=== PATIENT | male | born 1995 | race Two or more races ===

== ENCOUNTER 2019-01-13 06:11 | Emergency (ER) | payer BC ==
[~2019-01-13] VITALS: Ht 165.1 cm; Wt 79.4 kg
[2019-01-13 06:20] VITALS: BP 124/83
--- NOTE | 2019-01-13 06:20 | NUR ---
ED Nurse Note: Pt arrived ED from home, c/o Flu like symptoms/coughing, sore throat for 2 days. Pt is A/OX 4. Vital signs stable at this time. Waiting for orders.
--- NOTE | 2019-01-13 06:32 | Emergency Room Report ---
History of Present Illness General Chief Complaint: Sore Throat Source: Patient Present Illness HPI Patient presents with complaints of sore throat Reports that yesterday he had felt some low-grade fever and some chills today he has increased discomfort with swallowing Denies any chest pain or shortness of breath He reports that he felt some irritation in the back of the throat and he tried to cough to get it out however while coughing he did have vomiting episode Denies any chest pain after this denies any posterior neck pain or photophobia Denies any focal weakness or recent travel Allergies: Coded Allergies: No Known Allergies (Unverified , 01/13/19) Patient History Past Medical History: see triage record Pertinent Family History: none Reviewed Nursing Documentation: PMH: Agreed; PSxH: Agreed Nursing Documentation-PMH Past Medical History: No Stated History Review of Systems All Other Systems: negative except mentioned in HPI Physical Exam Vital Signs Date Time Temp Pulse Resp B/P (MAP) Pulse Ox O2 Delivery O2 Flow Rate FiO2 01/13/19 06:16 97.9 85 16 123/87 95 Room Air Sp02 EP Interpretation: reviewed, normal General Appearance: well appearing, no apparent distress Head: normocephalic, atraumatic Eyes: bilateral eye PERRL, bilateral eye EOMI ENT: hearing grossly normal, normal voice, TMs + canals normal, uvula midline, pharyngeal erythema Neck: full range of motion, supple, no meningismus, no bony tend Respiratory: lungs clear, normal breath sounds, no rhonchi, no respiratory distress, no retraction, no accessory muscle use Cardiovascular #1: normal peripheral pulses, regular rate, rhythm, no edema, no gallop, no JVD, no murmur Gastrointestinal: normal bowel sounds, non tender, soft, no mass, no organomegaly, non-distended, no guarding, no hernia, no pulsatile mass, no rebound Genitourinary: no CVA tenderness Musculoskeletal: normal inspection Neurologic: oriented x3, responsive, 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 as tested, motor strength/ tone normal, sensory intact Psychiatric: mood/affect normal Skin: normal color, no rash, warm/dry, palpation normal Lymphatic: normal inspection, no adenopathy Medical Decision Making Diagnostic Impression: Primary Impression: Pharyngitis ER Course Multiple differentials including but not limited to pharyngitis, retropharyngeal abscess or peritonsillar abscess foreign body, retained Are considered Patient however does not appear in acute distress findings are more consistent with bacterial pharyngitis and patient will have initial conservative outpatient trial, Last Vital Signs Date Time Temp Pulse Resp B/P (MAP) Pulse Ox O2 Delivery O2 Flow Rate FiO2 01/13/19 06:20 97.9 84 16 124/83 95 Room Air Status: improved Disposition: HOME, SELF-CARE Condition: Improved Scripts No Active Prescriptions or Reported Meds Referrals: NOT CHOSEN IPA/MD,REFERRING (PCP) Additional Instructions: Patient is provided with the discharge instructions notified to follow up with primary doctor in the next 2-3 days otherwise return to the er with any worsening symptoms. Please note that this report is being documented using [employer] technology. This can lead to erroneous entry secondary to incorrect interpretation by the dictating instrument. Derrick Vick DO Jan 13, 2019 06:32
[2019-01-13] MEDS ORDERED: AMOXICILLIN500 MG ORAL (06:33)
[2019-01-13] MEDS ORDERED: IBUPROFEN600 MG ORAL (06:33)
[2019-01-13 06:40] VITALS: BP 126/81
--- NOTE | 2019-01-13 06:42 | NUR ---
ER DISCHARGE NOTE: Patient is cleared to be discharged per Dr. Vick. Pt is A/O x 4 on room air with stable vital signs. Pt was given dc and prescription instructions and was able to verbalize understanding. Pt's ID band removed. Pt is able to ambulate with steady gait and took all belongings.
== END 2019-01-13 06:42 | disposition home or self-care (01) ==
LOC: EMR 06:28
DX: J02.9 Acute pharyngitis, unspecified (principal); R50.9 Fever, unspecified
CPT/HCPCS: 99281

== ENCOUNTER 2019-03-24 00:53 | Emergency (ER) | payer BC ==
[~2019-03-24] VITALS: Ht 165.1 cm; Wt 79.4 kg
[~2019-03-24 00:53] MED LIST: AMOXICILLIN500 MG ORAL; IBUPROFEN600 MG ORAL
[2019-03-24 01:03] VITALS: BP 123/79
[2019-03-24 01:05] VITALS: BP 126/74
[2019-03-24 01:06] VITALS: BP 134/81
[2019-03-24 01:08] VITALS: BP 123/77
--- NOTE | 2019-03-24 01:36 | NUR ---
ED Nurse Note: Blood and urine sent to Lab.
--- NOTE | 2019-03-24 01:37 | NUR ---
ED Nurse Note: X-ray done at bed side.
--- NOTE | 2019-03-24 01:43 | NUR ---
ED Nurse Note: Meds given as ordered.
[2019-03-24 01:46] LABS: BASOPHILS % (AUTO) 1.3 % (0.0-2.0); HEMOGLOBIN 16.7 G/DL (14.2-18.0); LYMPHOCYTES % (AUTO) 29.9 % (20.0-45.0); MEAN CORPUSCULAR VOLUME 92 FL (80-99); MONOCYTES % (AUTO) 9.3 % (1.0-10.0); NEUTROPHILS % (AUTO) 58.4 % (45.0-75.0); PLATELET COUNT 301 K/UL (150-450); RED CELL DISTRIBUTION WIDTH 11.3 % (11.6-14.8); WHITE BLOOD COUNT 11.8 K/UL (4.8-10.8)
--- NOTE | 2019-03-24 01:47 | Emergency Room Report ---
History of Present Illness General Chief Complaint: Chest Pain Source: Patient Present Illness HPI The patient presents with complaint of substernal chest pain. This began when he was trying to urinate and was unable to. He states he was not straining at that time. He had an unusual feeling of having to urinate and this was the first time he is felt that he could not. He felt a strange sensation in his chest at that time and then felt flushed. He then started having left-sided chest pressure which radiated to his left arm and down to his little finger. This resolved spontaneously. He did not break out in perspiration and did not feel that he was about to pass out. The pain in his chest persisted. He decided this needed to be checked out. He and his mom took an Uber to the emergency department. During that time he started feeling anxious and a different type of pressure in his chest. He rolled on the window and the pressure in his chest started to feel better. No risk factors for cardiac disease. He does not know his cholesterol. The patient denies stress at this time. He did not eat well today. He denies heartburn type of feeling. No change in bowels or urination. Allergies: Coded Allergies: No Known Allergies (Unverified , 01/13/19) Patient History Past Medical History: see triage record Social History: Denies: smoking, alcohol use, drug use Social History Narrative after school events Reviewed Nursing Documentation: PMH: Agreed; PSxH: Agreed Nursing Documentation-PM Past Medical History: No Stated History Review of Systems All Other Systems: negative except mentioned in HPI Physical Exam Vital Signs Date Time Temp Pulse Resp B/P (MAP) Pulse Ox O2 Delivery O2 Flow Rate FiO2 03/24/19 00:57 97.9 79 18 131/85 (100) 100 Room Air Sp02 EP Interpretation: reviewed, normal General Appearance: well appearing, no apparent distress, GCS 15, non-toxic Head: normocephalic, atraumatic Eyes: bilateral eye normal inspection, bilateral eye PERRL ENT: moist mucus membranes Neck: supple Respiratory: chest non-tender, lungs clear, normal breath sounds Cardiovascular #1: regular rate, rhythm Cardiovascular #2: 2+ radial (R) Gastrointestinal: normal inspection, normal bowel sounds, non tender, no mass, non-distended Musculoskeletal: back normal, gait/station normal, normal range of motion Neurologic: alert, oriented x3, grossly normal Psychiatric: mood/affect normal - slightly anxious Skin: no rash Medical Decision Making Diagnostic Impression: Primary Impression: Chest pain Qualified Codes: R07.9 - Chest pain, unspecified Additional Impressions: Hypokalemia Elevated liver enzymes ER Course Patient presents with chest pain that began after inability to urinate with the feeling that he needed to. Differential includes vasovagal episode, esophageal reflux, esophageal spasm, arrhythmia, pericarditis, pulmonary embolus amongst others. Based on history and physical pulmonary embolus extremely unlikely. Patient will be evaluated with EKG, chest x-ray and labs. The patient will be treated with a dose of Pepcid IV. His risk factors for cardiac disease or nil. Based on history and physical exam pulmonary embolus is extremely unlikely. EKG normal sinus rhythm with nonspecific ST-T wave changes rate 85. Chest x- ray clear. Labs remarkable for low potassium and elevated liver function tests. Patient improved with treatment and observation. Discussed findings with patient and mother. Discussed the need for follow-up with his physician. Patient stable for outpatient observation and treatment. Laboratory Tests Test 03/24/19 01:30 White Blood Count 11.8 K/UL (4.8-10.8) H Red Blood Count 5.10 M/UL (4.70-6.10) Hemoglobin 16.7 G/DL (14.2-18.0) Hematocrit 47.0 % (42.0-52.0) Mean Corpuscular Volume 92 FL (80-99) Mean Corpuscular Hemoglobin 32.8 PG (27.0-31.0) H Mean Corpuscular Hemoglobin Concent 35.6 G/DL (32.0-36.0) Red Cell Distribution Width 11.3 % (11.6-14.8) L Platelet Count 301 K/UL (150-450) Mean Platelet Volume 8.2 FL (6.5-10.1) Neutrophils (%) (Auto) 58.4 % (45.0-75.0) Lymphocytes (%) (Auto) 29.9 % (20.0-45.0) Monocytes (%) (Auto) 9.3 % (1.0-10.0) Eosinophils (%) (Auto) 1.0 % (0.0-3.0) Basophils (%) (Auto) 1.3 % (0.0-2.0) Urine Color Pale yellow Urine Appearance Clear Urine pH 6 (4.5-8.0) Urine Specific [place] 1.015 (1.005-1.035) Urine Protein Negative (NEGATIVE) Urine Glucose (UA) Negative (NEGATIVE) Urine Ketones Negative (NEGATIVE) Urine Blood Negative (NEGATIVE) Urine Nitrite Negative (NEGATIVE) Urine Bilirubin Negative (NEGATIVE) Urine Urobilinogen Normal MG/DL (0.0-1.0) Urine Leukocyte Esterase Negative (NEGATIVE) Sodium Level 138 MMOL/L (136-145) Potassium Level 3.3 MMOL/L (3.5-5.1) L Chloride Level 101 MMOL/L (98-107) Carbon Dioxide Level 24 MMOL/L (21-32) Anion Gap 13 mmol/L (5-15) Blood Urea Nitrogen 12 mg/dL (7-18) Creatinine 1.0 MG/DL (0.55-1.30) Estimate Glomerular Filtration Rate > 60 mL/min (>60) Glucose Level 109 MG/DL (74-106) H Calcium Level 10.1 MG/DL (8.5-10.1) Total Bilirubin 0.4 MG/DL (0.2-1.0) Aspartate Amino Transferase (AST) 54 U/L (15-37) H Alanine Aminotransferase (ALT) 199 U/L (12-78) H Alkaline Phosphatase 78 U/L (46-116) Total Creatine Kinase 226 U/L (26-308) Troponin I 0.000 ng/mL (0.000-0.056) Total Protein 8.7 G/DL (6.4-8.2) H Albumin 5.3 G/DL (3.4-5.0) H Globulin 3.4 g/dL Albumin/Globulin Ratio 1.6 (1.0-2.7) Urine Opiates Screen Negative (NEGATIVE) Urine Barbiturates Screen Negative (NEGATIVE) Phencyclidine (PCP) Screen Negative (NEGATIVE) Urine Amphetamines Screen Negative (NEGATIVE) Urine Benzodiazepines Screen Negative (NEGATIVE) Urine Cocaine Screen Negative (NEGATIVE) Urine Marijuana (THC) Screen Negative (NEGATIVE) EKG Diagnostic Results Rate: normal Rhythm: NSR ST Segments: no acute changes Rhythm Strip Diag. Results EP Interpretation: yes Rhythm: NSR, no PVC's, no ectopy Chest X-Ray Diagnostic Results Chest X-Ray Diagnostic Results : Chest X-Ray Ordered: Yes # of Views/Limited/Complete: 1 View Indication: Chest Pain EP Interpretation: Yes Interpretation: no consolidation, no effusion, no pneumothorax Impression: No acute disease Electronically Signed by: Electronically signed by Jamal Saravia MD Last Vital Signs Date Time Temp Pulse Resp B/P (MAP) Pulse Ox O2 Delivery O2 Flow Rate FiO2 03/24/19 04:20 97.9 82 18 121/78 100 Room Air Status: improved Disposition: HOME, SELF-CARE Condition: Improved Scripts Famotidine (PEPCID AC) 20 Mg Tablet 20 MG PO DAILY, #20 TAB Prov: Jamal Saravia MD 03/24/19 Referrals: PRASHANT OLIVAS,REFERRING (PCP) Jamal Saravia MD Mar 24, 2019 01:47
[2019-03-24 01:52] LABS: APPEARANCE,URINE CLEAR; BILIRUBIN, URINE NEGATIVE (NEGATIVE); COLOR,URINE PALE YELLOW; GLUCOSE, URINE (UA) NEGATIVE (NEGATIVE); KETONES,URINE NEGATIVE (NEGATIVE); LEUKOCYTE ESTERASE ,URINE NEGATIVE (NEGATIVE); NITRITE,URINE NEGATIVE (NEGATIVE); PH,URINE 6 (4.5-8.0); PROTEIN,URINE NEGATIVE (NEGATIVE); UROBILINOGEN,URINE NORMAL MG/DL (0.0-1.0)
[2019-03-24 01:56] LABS: ANION GAP 13 mmol/L (5-15); BLOOD UREA NITROGEN 12 mg/dL (7-18); CALCIUM 10.1 MG/DL (8.5-10.1); CARBON DIOXIDE 24 MMOL/L (21-32); CHLORIDE 101 MMOL/L (98-107); POTASSIUM 3.3 MMOL/L (3.5-5.1); SODIUM 138 MMOL/L (136-145)
[2019-03-24 02:01] LABS: ALANINE AMINOTRANSFERASE 199 U/L (12-78); ALBUMIN 5.3 G/DL (3.4-5.0); ALBUMIN/GLOBULIN RATIO 1.6 (1.0-2.7); ALKALINE PHOSPHATASE 78 U/L (46-116); ASPARTATE AMINO TRANSFERASE 54 U/L (15-37); BILIRUBIN,TOTAL 0.4 MG/DL (0.2-1.0); CREATINE KINASE 226 U/L (26-308)
--- NOTE | 2019-03-24 02:26 | Diagnostic Imaging Report ---
EXAM: XR Chest, 1 View CLINICAL HISTORY: Chest pain TECHNIQUE: Frontal view of the chest. COMPARISON: No relevant prior studies available. FINDINGS: Lungs: Unremarkable. No consolidation. Pleural space: Unremarkable. No pneumothorax. Heart: Unremarkable. No cardiomegaly. Mediastinum: Unremarkable. Bones/joints: No acute osseous abnormality. IMPRESSION: No acute cardiopulmonary process.
[2019-03-24] MEDS ORDERED: PEPCID AC20 M2 PO (04:11)
[2019-03-24 04:20] VITALS: BP 121/78
--- NOTE | 2019-03-24 04:20 | NUR ---
ER DISCHARGE NOTE: Patient is cleared to be discharged per Dr. Saravia. Pt is aox4 on room air with stable vital signs. Pt was given dc and prescription instructions and pt was able to verbalize understanding. Pt's ID band and IV site removed without complications. Pt is able to ambulate with steady gait and pt took all belongings.
--- NOTE | 2019-03-27 16:35 | Cardiology Report ---
APPROVED REPORT EKG Measurement Heart [id number] Normal sinus rhythm Nonspecific ST abnormality Abnormal ECG
== END 2019-03-24 04:20 | disposition home or self-care (01) ==
LOC: EMR 01:23
DX: R07.9 Chest pain, unspecified (principal); E87.6 Hypokalemia; R79.89 Other specified abnormal findings of blood chemistry
CPT/HCPCS: 36415; 71045; 80053; 80307; 81003; 82550; 84484; 85025; 93005; 96374; 99284; S0028

== ENCOUNTER 2020-06-20 21:20 | Emergency (ER) | payer BC ==
[~2020-06-20] VITALS: Ht 165.1 cm; Wt 93.4 kg
[~2020-06-20 21:20] MED LIST changes: +LIDODERM700 M1 TOPIC; +PEPCID AC20 M2 PO
--- NOTE | 2020-06-20 21:34 | NUR ---
ED Nurse Note: Walk-in patient with complaints of right flank pain, 12/02. Patient denies any other signs or symptoms.
[2020-06-20 21:36] VITALS: BP 121/76
--- NOTE | 2020-06-20 22:08 | NUR ---
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
[2020-06-20] MEDS ORDERED: IBUPROFEN600 M1 ORAL (22:15)
--- NOTE | 2020-06-20 22:25 | Emergency Room Report ---
History of Present Illness General Chief Complaint: Abdominal Pain Source: Patient Present Illness HPI Is a 24-year-old male presents for increased right-sided pain. Reports having onset of symptoms several days ago. Pain is worse with position. He states when his hip is flexed on the right side he begins having increased pain. Denies any vomiting or abdominal discomfort. Had no previous abdominal surgery. History of fatty liver. Had previous been having increased exercise recently. Denies any nausea vomiting or diarrhea. Only has pain with flexion. Allergies: Coded Allergies: No Known Allergies (Unverified , 01/13/19) COVID-19 Screening Contact w/high risk pt: No Experienced COVID-19 symptoms?: No COVID-19 Testing performed PROTEOMICS SCIENTIST: No Patient History Past Medical History: see triage record Reviewed Nursing Documentation: PMH: Agreed; PSxH: Agreed Review of Systems All Other Systems: negative except mentioned in HPI Physical Exam Vital Signs Date Time Temp Pulse Resp B/P (MAP) Pulse Ox O2 Delivery O2 Flow Rate FiO2 06/20/20 21:25 98.8 76 16 121/76 (91) 98 Room Air General Appearance: well appearing, no apparent distress, alert, GCS 15 Head: normocephalic, atraumatic ENT: hearing grossly normal, normal voice Neck: full range of motion, supple Respiratory: lungs clear, normal breath sounds, no respiratory distress, speaking full sentences Gastrointestinal: normal inspection, normal bowel sounds, non tender, soft, other - No McBurney's point tenderness Musculoskeletal: no calf tenderness, other - Pain with right hip flexion. 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 Patient denies any urinary symptoms and does not have any evidence of significant flank pain consistent with a kidney stone. Patient does not appear to require any laboratory testing. Pelvis x-ray showed no evidence of acute bony abnormality. X-ray imaging did show some femoral changes. Patient was noted to have no pain to his low back and no tenderness to the spine. Patient appears to be stable for outpatient follow-up with his primary care physician. Patient was advised to follow-up with orthopedics for further evaluation. He was advised that he may need MRI. The patient is advised to follow up with primary care doctor in 1-2 days. Patient is advised to return if any worsening condition or if any changes in status that are concerning. 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 Last Vital Signs Date Time Temp Pulse Resp B/P (MAP) Pulse Ox O2 Delivery O2 Flow Rate FiO2 06/20/20 21:36 76 16 Room Air 06/20/20 21:36 98.8 121/76 98 Status: improved Disposition: HOME, SELF-CARE Condition: Stable Scripts Ibuprofen* (MOTRIN*) 600 Mg Tablet 600 MG ORAL Q6H PRN for For Pain, #30 TAB 0 Refills Prov: Elmo Wisdom MD 06/20/20 Patient Instructions: Muscle Strain Additional Instructions: Follow up with your doctor for recheck. Return if worse. Elmo Wisdom MD Jun 20, 2020 22:25
[2020-06-20 22:29] VITALS: BP 120/78
--- NOTE | 2020-06-20 22:29 | NUR ---
ER DISCHARGE NOTE: Patient is cleared to be discharged per ERMD. Patient is A&OX4 and ambulatory. Patient verbalized understanding of discharge instructions and departed to home via his personal vehicle with all belongings.
--- NOTE | 2020-06-20 22:46 | Diagnostic Imaging Report ---
Pelvis into the right hip History: Pain Findings: Pubic symphysis, superior inferior pubic rami are normal. Iliac bones, SI joints are normal. Bilateral hip joints are normal. Right femoral head neck intratrochanteric region are seen to be unremarkable. Small bony protuberance seen at the femoral head neck junction which may be a set up for cam Type JAVI. Impression: 1. No acute findings. 2. Possible set up for a Cam type JAVI.
== END 2020-06-20 22:30 | disposition home or self-care (01) ==
LOC: EMR 22:30
DX: T14.8XXA Other injury of unspecified body region, initial encounter (principal); X58.XXXA Exposure to other specified factors, initial encounter; Y92.9 Unspecified place or not applicable
CPT/HCPCS: 99283